=== PATIENT | female | born 2000 | race Caucasian/White ===

== ENCOUNTER 2024-01-11 00:08 | Emergency (ER) | payer OTHER ==
[2024-01-11 00:45] VITALS: BP 122/84
== END 2024-01-11 00:45 | disposition home or self-care (01) ==
LOC: ED 00:08
DX: S61.210A Laceration without foreign body of right index finger without damage to nail, initial encounter (principal); Z23 Encounter for immunization; W26.0XXA Contact with knife, initial encounter; Y93.G1 Activity, food preparation and clean up
CPT/HCPCS: 90715